=== PATIENT | female | born 1960 | race Caucasian/White ===

== ENCOUNTER 2017-10-16 08:54 | Emergency (ER) | payer BC ==
[~2017-10-16] VITALS: Ht 167.6 cm; Wt 95.3 kg
[2017-10-16 09:36] VITALS: BP 156/86
[2017-10-16] MEDS ORDERED: ACETAMINOPHEN 500 MG TAB PO ONE (10:00)
[2017-10-16] MEDS ORDERED: LIDOCAINE 1% HCL (LOCAL ANESTH.) INJ 20ML MDV ONE (11:03)
[2017-10-16] MEDS ORDERED: TETANUS-DIPTH-ACEL PERTUSSIS 0.5ML SYRG IM ONE (11:15)
[2017-10-16] MEDS ORDERED: LIDOCAINE 1% (LOCAL ANESTH.) PF 5ml SDV ID ONE (11:15)
[2017-10-16] MEDS ORDERED: BACITRACIN TOP OINT 1 UD PKG TOP ONE (11:15)
== END 2017-10-16 11:27 | disposition home or self-care (01) ==
LOC: ER 08:54
DX: S61.212A Laceration without foreign body of right middle finger without damage to nail, initial encounter (principal); W25.XXXA Contact with sharp glass, initial encounter; Y93.89 Activity, other specified; Y99.8 Other external cause status; Y92.89 Other specified places as the place of occurrence of the external cause
CPT/HCPCS: 12001; 73130; 73562; 90471; 90715; 99284; J2001